=== PATIENT | male | born 1960 | race Native Hawaiian/Other Pacific Islander ===

== ENCOUNTER 2016-07-15 09:22 | Inpatient (IN) | payer MEDICAID ==
[2016-07-10 10:31] VITALS: BMI 25.9
[2016-07-15] MEDS ORDERED: Lidocaine 1% Inj (20ml) ONE (13:21)
[2016-07-15] MEDS ORDERED: Midazolam 2 MG/2 ML VIAL ONE (13:22)
[2016-07-15] MEDS ORDERED: Propofol 10 mg/ml Inj (20 ML) ONE (13:22)
[2016-07-15] MEDS ORDERED: Succinylcholine Chloride 20 mg/ml Syr (5 ml) IV ONE (13:25)
[2016-07-15] MEDS ORDERED: Rocuronium 10 mg/ml (5 ml) ONE (13:25)
[2016-07-15] MEDS: Bupivacaine HCl 0.25% PF (10 ml) Inj ONE ×2 (13:41→13:59)
[2016-07-15] MEDS: ceFAZolin IV 2 gm in Dextrose 50 ML IVPB ONE ×2 (13:44→13:45)
[2016-07-15] MEDS ORDERED: Absorbable Gelatin Sponge Size 12-7 ONE (13:59)
[2016-07-15] MEDS ORDERED: Oxycodone/Acetaminophen 5/325 mg Tab PO PRN (14:09)
[2016-07-15] MEDS ORDERED: HYDROmorphone 0.5 mg/0.5 ml ISec IVP PRN (14:17)
--- NOTE | 2016-07-15 15:13 | OP ---
PROCEDURE DATE: 07/15/2016 PREOPERATIVE DIAGNOSES: Rectal bleeding and hemorrhoids. POSTOPERATIVE DIAGNOSES: 1. Rectal bleeding and hemorrhoids with rectal polyp. 2. Posterior midline anal fissure. PROCEDURE PERFORMED: Complex hemorrhoidectomy with fissurectomy, internal sphincterotomy, transanal excision of a rectal polyp full thickness with flap closure. SURGEON: Byron Baker MD ANESTHESIA: General. ESTIMATED BLOOD LOSS: 30 mL. POSTOPERATIVE CONDITION: Stable. INDICATIONS FOR SURGERY: A 56-year-old male with rectal pain, bleeding and hemorrhoids. Now taken t o the OR for examination under anesthesia and elective hemorrhoidectomy. GROSS FINDINGS: There was a posterior midline anal fissure associated with both a skin tag and a hem orrhoid, and all were removed in 1 excision. There was a rectal polyp at 2 cm, which was removed via a transanal full thickness excision and repaired with a flap closure. There were no other abnormal findings. PROCEDURE: The patient was taken to the operating room. General anesthesia was administered. He wa s placed in the prone position, jackknifed with the buttocks taped open. The rectal area was prepped and draped and anoscopy was performed with the above findings. The rectal polyp was grasped with a cooper clamp, transected at its base full thickness and a bleeding blood vessel was exposed. It was repaired and then a flap closure was performed. Next, a hemorrhoid bundle along with a skin tag and anal fissure were grasped at the posterior midline, excised via an elliptical incision and closed vi a a flap closure. The wound was hemostatic, packed with Gelfoam. Prior to closing the hemorrhoidect laly incision, the internal sphincter was grasped with an Allis clamp and divided. The patient tolera deena procedure well, returned to recovery room in stable condition. Byron Baker MD cc: [id number] TT: 07/15/2016 15:12:33 en
[2016-07-15 20:47] VITALS: RESP 20
[2016-07-15] MEDS: Enoxaparin 30 mg Syringe SC SCH (22:29)
[2016-07-16 08:11] LABS: BASO % 0.1 % (0.0-2.0); HEMATOCRIT 35.9 % (35.0-51.0); LYMPH # 1.6 K/uL (1.0-4.3); LYMPH % 12.4 % (20.0-40.0); MEAN CELL VOLUME 81.9 fL (80.0-94.0); MEAN CORPUSCULAR HGB CONC 31.8 g/dL (33.0-37.0); MONO # 0.6 K/uL (0.0-0.8); MONO % 4.7 % (0.0-10.0); NRBC % 0.1 % (0.0-2.0); RED CELL DISTRIBUTION WIDTH 13.2 % (11.5-14.5)
[2016-07-16 08:15] LABS: WHITE BLOOD COUNT 13.3 K/uL (4.8-10.8)
[2016-07-16 08:20] LABS: CHLORIDE 104 mmol/L (98-107); POTASSIUM 4.3 mmol/L (3.6-5.2); SODIUM 140 mmol/L (132-148)
[2016-07-16 08:23] LABS: BLOOD UREA NITROGEN 12 mg/dL (9-20); CARBON DIOXIDE 20 mmol/L (22-30); GFR AFRICAN-AMERICAN > 60; GLUCOSE,RANDOM 112 mg/dL (75-110)
[2016-07-16 08:24] LABS: CALCIUM 9.2 mg/dl (8.6-10.4)
[2016-07-16 09:07] VITALS: O2SAT 98
[2016-07-16] MEDS: Enoxaparin 30 mg Syringe SC SCH (09:57)
[2016-07-16] MEDS ORDERED: Pneumococcal 23-Valent Vaccine IM ONE ×2 (10:00→13:30)
[2016-07-16 16:18] VITALS: BP 131/78; PULSE 88; TEMP 97.7
== END 2016-07-16 16:30 | disposition home or self-care (01) | DRG 158 ==
LOC: C.SDS 09:22 → C.9P 14:09 → C.9S 14:33 → C.3T 20:34
PROVIDERS: ADMIT Surgery; ATTEND Surgery
PROC: 0HX9XZZ Transfer Perineum Skin, External Approach (ICD-10-PCS; 2016-07-15)
PROC: 0DBP7ZZ Excision of Rectum, Via Natural or Artificial Opening (ICD-10-PCS; 2016-07-15)
PROC: 0DJD8ZZ Inspection of Lower Intestinal Tract, Via Natural or Artificial Opening Endoscopic (ICD-10-PCS; 2016-07-15)
PROC: 06BY0ZC Excision of Hemorrhoidal Plexus, Open Approach (ICD-10-PCS; principal; 2016-07-15 12:00)
DX: K64.8 Other hemorrhoids (principal); K60.2 Anal fissure, unspecified; K62.1 Rectal polyp

== ENCOUNTER 2016-12-25 08:01 | Day surgery (SDC) | payer MEDICAID ==
[2016-07-10 10:30] VITALS: BMI 25.9
[2016-12-25] MEDS ORDERED: Gentamicin 160 MG in Sodium Chloride 0.9% 100 ML IVPB ONE (09:06)
[2016-12-25] MEDS ORDERED: Propofol 10 mg/ml Inj (20 ML) ONE ×2 (09:10→09:53)
[2016-12-25] MEDS ORDERED: Lidocaine Hydrochloride 5 ML INJ ONE (09:10)
[2016-12-25] MEDS ORDERED: Lidocaine 2% Jelly (Uro-Jet) ONE (09:11)
[2016-12-25] MEDS ORDERED: cefTRIAXone IV 1 gm in Dextros 50 ML IVPB ONE (09:11)
[2016-12-25] MEDS ORDERED: Midazolam 2 MG/2 ML VIAL ONE (09:27)
[2016-12-25] MEDS ORDERED: Lactated Ringer's 1,000 ML IV ONE (09:32)
[2016-12-25 11:29] VITALS: BP 136/80; PULSE 83; RESP 18; TEMP 97; O2SAT 100
--- NOTE | 2016-12-25 12:09 | OP ---
PROCEDURE DATE: 12/25/2016 PREOPERATIVE DIAGNOSIS: Prostate cancer, active surveillance. POSTOPERATIVE DIAGNOSIS: Prostate cancer, active surveillance. PROCEDURE: Transrectal ultrasound. DIAGNOSTIC: Transrectal ultrasound guidance and prostatic biopsy. SURGEON: Umberto Palacios MD DESCRIPTION OF PROCEDURE: The patient was brought to the operating room and prior to bringing him in, I spoke with the patient, he confirmed he has not taken any aspirin or NSAIDs for over a week. He was instructed to take it easy for 1 or 2 days postprocedure and that in the event, if he has had bleeding, fever, or chills, he should call my office immediately and/or go to the emergency room. He was also instructed to call the office later today and be sure he has an appointment from 1 or 2 weeks afterwards for followup and information regarding the biopsy report. He was premedicated with 1 gram of Rocephin and 160 mg of gentamicin IV and placed under sedation in lithotomy position in the OR. Examination of the prostate revealed it was on the small side and the actual measurements were 11.9 cm in volume. No definitive lesions were noted. We now performed 6 quadrant biopsies with 2 biopsies for specimen container in the usual fashion. We now then maintain pressure with the ultrasound probe for 6 minutes to promote hemostasis and no significant bleeding was noted. I should mention that prior to introducing the ultrasound probe, the rectum was cleansed with Betadine. The patient tolerated the procedure well. Umberto Palacios MD
== END 2016-12-25 11:50 | disposition home or self-care (01) ==
LOC: C.SDS 08:01
PROVIDERS: ATTEND Urology
DX: C61 Malignant neoplasm of prostate (principal)
CPT/HCPCS: 55700; 88305; 88342; J0696; J1580; J7120

== ENCOUNTER 2018-07-21 10:04 | Outpatient (CLI) | payer MEDICAID | END 2018-07-21 10:05 | disposition home or self-care (01) | LOC: C.LAB 10:04 → C.RADH 10:05 | DX: M19.071 Primary osteoarthritis, right ankle and foot (principal); M19.072 Primary osteoarthritis, left ankle and foot ==